=== PATIENT | female | born 1980 | race Caucasian/White ===

== ENCOUNTER 2016-09-19 19:57 | Emergency (ER) | payer MEDICAID, OTHER ==
[~2016-09-19] VITALS: Ht 152.4 cm; Wt 52.5 kg
[2016-09-19 20:17] VITALS: Ht 152.4 cm; Wt 52.5 kg
[2016-09-19] MEDS ORDERED: ACET500C5 PO (22:43)
[2016-09-19] MEDS ORDERED: BENZ100C70 PO (22:43)
[2016-09-19] MEDS ORDERED: D-ME473S18 PO (22:44)
[2016-09-19] MEDS ORDERED: ALBU8.5H3 INH (22:45)
--- NOTE | 2016-09-20 02:42 | ERD ---
ER Documentation Chief Complaint Date/Time DATE: 09/20/16 TIME: 02:38 Chief Complaint fever, cough x 3 days HPI Patient is a 35-year-old female who presents the ED with cough and sore throat for 2 days. She has had a productive cough for 2 days and complains of sore throat. Denies fever, chills, nausea, vomiting or diarrhea. Denies headache, dizziness, neck pain or stiffness. Denies chest pain,or shortness of breath or difficulty breathing. Denies leg pain or swelling. She is only taking Aleve for her symptoms which have helped minimally. Denies urinary symptoms. Denies abdominal pain. No other complaints today. No sick contacts. ROS All systems reviewed and are negative except as per history of present illness. Medications Home Meds Active Scripts Albuterol Sulfate* (Proair HFA*) 8.5 Gm Hfa.aer.ad, 2 PUFF INH Q4, #1 INHALER Prov:GRACIA ASIF-C 09/19/16 Dextromethorphan Hb-Promethazine Hcl (Promethazine DM Syrup) 473 Ml Syrup, 1.25 ML PO Q6H Y for COUGH, #4 OZ Prov:GRACIA ASIF-C 09/19/16 Acetaminophen* (Tylophen*) 500 Mg Capsule, 1 CAP PO Q6H Y for PAIN AND OR ELEVATED TEMP, #20 CAP Prov:GRACIA ASIF PA-C 09/19/16 Benzonatate* (Tessalon Perle*) 100 Mg Capsule, 100 MG PO Q8H Y for COUGH for 14 Days, CAP Prov:GRACIA ASIF-C 09/19/16 Allergies Allergies: Coded Allergies: No Known Allergy (Unverified , 03/26/14) PMhx/Soc Medical and Surgical Hx: pt denies Surgical Hx History of Surgery: No Anesthesia Reaction: No Hx Neurological Disorder: No Hx Respiratory Disorders: No Hx Cardiac Disorders: No Hx Psychiatric Problems: No Hx Miscellaneous Medical Probl: Yes (MOTHER STATES SHE IS DEVELOPMENTALY DELAYED) Hx Alcohol Use: No Hx Substance Use: No Hx Tobacco Use: No Smoking Status: Never smoker FmHx Family History: No coronary disease, No diabetes, No other Physical Exam Vitals Vital Signs Date Time Temp Pulse Resp B/P Pulse Ox O2 Delivery O2 Flow Rate FiO2 09/19/16 20:17 982.1 84 20 117/84 100 Physical Exam GENERAL: Well-developed, well-nourished female. Appears in no acute distress. HEAD: Normocephalic, atraumatic. EYES: Pupils are equally reactive bilaterally. EOMs grossly intact. No conjunctival erythema. ENT: Moist mucous membranes. No uvula deviation. No kissing tonsils. No exudates. TMs clear with no erythema or drainage. No mastoid tenderness. NECK: Supple. No lymphadenopathy or thyromegaly. No meningismus. negative kernig. negative brudinski. LUNG: Clear to auscultation bilaterally. No rhonchi, wheezing, rales or coarse breath sounds. HEART: Regular rate and rhythm. No murmurs, rubs or gallops. ABDOMEN: No scars, ecchymosis or rashes noted. Soft, nontender, and nondistended. Positive bowel sounds in all four quadrants. No rebound tenderness , no guarding. (-) McBurneys point tenderness. No CVA tenderness. BACK: No midline tenderness. Extremities: Equal pulses bilaterally. No peripheral clubbing, cyanosis or edema. No unilateral leg swelling. NEUROLOGIC: Alert and oriented. Moving all four extremities. 5/5 strength in all extremities. Normal speech. Steady gait. SKIN: Normal color. Warm and dry. No rashes or lesions. Capillary refill < 2 seconds Procedures/MDM ER COURSE: I kept the patient and/or family informed of laboratory and diagnostic imaging results throughout the emergency room course. MEDICAL DECISION MAKING: This is a 35-year-old who presents with cough and sore throat. Vital signs were reviewed. Patient is afebrile. Patient is not hypoxic. Patient is not toxic or ill-appearing. Patient likely has a URI of viral etiology. Low suspicion for pneumonia, PE, pneumothorax, ACS, epiglottitis, obstruction, TB, pertussis, meningitis, sepsis. Low suspicion for peritonsillar abscess, strep pharyngitis , mononucleosis, dental abscess. I do not think a chest x-ray is warranted at this time as her lung examination is within normal limits and she is afebrile. DISCHARGE: At this time, patient is stable for discharge and outpatient management with no new complaints during the ER course. Patient was sent home with promethazine, Tylenol, Tessalon Perles and albuterol.. Patient will be discharged home with instructions to recheck for new or worsening symptoms such as fever, nausea, weakness, LOC and to follow up with primary care in the next 1-2 days. Patient was advised to return to the ER for any new or worsening symptoms. Plan was discussed and patient and/or family understands and agrees. Home instructions were given. Departure Diagnosis: Primary Impression: Viral URI Condition: Stable Patient Instructions: Uri, Viral, No Abx (Adult) Additional Instructions: Llame al doctor MAANA y mariam dominga CHANTEL PARA DENTRO DE 1-2 CAMACHO.Dgale a la secretaria que nosotros le instruimos hacer esta chantel.Avise o llame si stevenson condicin se empeora antes de la chantel. Regresa aqui si peor o no mejor. GRACIA ASIF PA-C Sep 20, 2016 02:42
== END 2016-09-19 22:51 | disposition home or self-care (01) ==
LOC: FTE 19:57
DX: J06.9 Acute upper respiratory infection, unspecified (principal)
CPT/HCPCS: 99284

== ENCOUNTER 2017-10-17 21:45 | Emergency (ER) | END 2017-10-18 05:05 | disposition home or self-care (01) ==